=== PATIENT | male | born 1960 | race Hispanic/Latino ===

== ENCOUNTER 2021-02-22 16:32 | Inpatient (IN) | payer OTHER ==
[~2021-02-22] VITALS: Ht 172.7 cm; Wt 127.0 kg
[2021-02-22] MEDS ORDERED: PIPERACILLIN/TAZO 4.5 GM 100 ML IV STA (16:41)
[2021-02-22] MEDS ORDERED: HYDROMORPHONE 1MG/1ML INJ IV PRN (16:45)
[2021-02-22 18:08] LABS: BASOPHILS # (AUTO) 0.1 (0.0-0.1); BASOPHILS % 0.8 % (0.0-1.0); EOSINOPHILS # (AUTO) 0.1 (0.0-0.4); EOSINOPHILS % 0.9 % (0.0-6.0); HEMATOCRIT 47.8 % (38.2-49.6); HEMOGLOBIN 15.9 g/dL (14.0-18.0); LYMPHOCYTES # (AUTO) 1.3 (1.0-3.2); LYMPHOCYTES % 19.7 % (18.0-39.1); MEAN CORPUSCULAR HEMOGLOBIN 24.7 pg (28-32); MEAN CORPUSCULAR HGB CONC 33.3 g/dL (31-35); MEAN CORPUSCULAR VOLUME 74.1 fL (81-99); MONOCYTES # (AUTO) 0.7 (0.2-0.8); MONOCYTES % 10.4 % (4.4-11.3); NEUTROPHILS # (AUTO) 4.1 (2.1-6.9); NEUTROPHILS % 62.9 % (38.7-80.0); PLATELET COUNT 195 x10e3/uL (140-360); RED BLOOD COUNT 6.45 x10e6/uL (4.3-5.7); RED CELL DISTRIBUTION WIDTH 21.1 % (11.7-14.4)
[2021-02-22 18:20] LABS: ALANINE AMINOTRANSFERASE 31 IU/L (0-55); ALBUMIN 3.7 g/dL (3.5-5.0); ALBUMIN/GLOBULIN RATIO 0.8 (0.8-2.0); ALKALINE PHOSPHATASE 109 IU/L (40-150); ANION GAP 16.6 mmol/L (8-16); BLOOD UREA NITROGEN 6 mg/dL (7-26); BUN/CREATININE RATIO 7 (6-25); CARBON DIOXIDE 22 mmol/L (22-29); CHLORIDE 100 mmol/L (98-107); CREATININE, SERUM 0.86 mg/dL (0.72-1.25); EST GLOMERULAR FILTRATION RATE > 60 ML/MIN (60-); GLUCOSE 122 mg/dL (74-118); POTASSIUM 4.6 mmol/L (3.5-5.1); SODIUM 134 mmol/L (136-145)
[2021-02-22 21:56] VITALS: BP 157/141
[2021-02-22] MEDS: SODIUM CHLORIDE 0.9% 1000ML 1,000 ML IV SCH (21:59)
[2021-02-22] MEDS: CLINDAMYCIN 300MG 50 ML IV SCH ×2 (21:59→22:05)
[2021-02-22] MEDS ORDERED: PIPERACILLIN/TAZO 4.5 GM 100 ML IV ONE (22:01)
[2021-02-22] MEDS ORDERED: SODIUM CHLORIDE 0.9% 100 ML ONE (22:01)
[2021-02-23 00:30] VITALS: BP 162/92
[2021-02-23] MEDS ORDERED: LYRICA150 MG PO (03:29)
[2021-02-23 04:30] VITALS: BP 160/86
[2021-02-23 05:21] LABS: BASOPHILS # (AUTO) 0.1 (0.0-0.1); EOSINOPHILS # (AUTO) 0.1 (0.0-0.4); EOSINOPHILS % 0.8 % (0.0-6.0); HEMATOCRIT 47.3 % (38.2-49.6); HEMOGLOBIN 15.5 g/dL (14.0-18.0); LYMPHOCYTES # (AUTO) 1.1 (1.0-3.2); LYMPHOCYTES % 17.9 % (18.0-39.1); MEAN CORPUSCULAR HEMOGLOBIN 24.3 pg (28-32); MEAN CORPUSCULAR HGB CONC 32.8 g/dL (31-35); MONOCYTES # (AUTO) 0.7 (0.2-0.8); MONOCYTES % 11.7 % (4.4-11.3); NEUTROPHILS % 64.3 % (38.7-80.0); PLATELET COUNT 166 x10e3/uL (140-360); RED BLOOD COUNT 6.39 x10e6/uL (4.3-5.7)
[2021-02-23] MEDS: SODIUM CHLORIDE 0.9% 1000ML 1,000 ML IV SCH ×3 (05:25→16:45)
[2021-02-23] MEDS: CLINDAMYCIN 300MG 50 ML IV SCH ×3 (05:25→22:58)
[2021-02-23 05:45] LABS: ANION GAP 14.5 mmol/L (8-16); BLOOD UREA NITROGEN 7 mg/dL (7-26); BUN/CREATININE RATIO 9 (6-25); CARBON DIOXIDE 21 mmol/L (22-29); CHLORIDE 105 mmol/L (98-107); CREATININE, SERUM 0.76 mg/dL (0.72-1.25); EST GLOMERULAR FILTRATION RATE > 60 ML/MIN (60-); GLUCOSE 102 mg/dL (74-118); POTASSIUM 4.5 mmol/L (3.5-5.1); SODIUM 136 mmol/L (136-145)
[2021-02-23] MEDS ORDERED: HYDROGEN PEROXIDE 120 ML BTL ONE (12:21)
[2021-02-23] MEDS ORDERED: FENTANYL CITRATE/PF 100MCG/2 ML INJ ONE (12:40)
[2021-02-23] MEDS ORDERED: MIDAZOLAM HCL 2 MG/2 ML VIAL ONE (12:40)
[2021-02-23] MEDS ORDERED: PROPOFOL IV EMULSION 10 MG/ML 20 ML VIAL ONE (13:35)
[2021-02-23] MEDS ORDERED: KETOROLAC TROMETHAMINE 30 MG/ML VIAL ONE (13:35)
[2021-02-23] MEDS ORDERED: POVIDONE IODINE 0.05% 0.05 % ML PO ONE (13:35)
[2021-02-23] MEDS ORDERED: ONDANSETRON HCL INJ 2MG/ML 2ML 2 MG/ML VIAL ONE (13:35)
[2021-02-23] MEDS ORDERED: LIDOCAINE HCL 2% LOCAL INJ 5 ML SDV VIAL INJ ONE (13:35)
[2021-02-23] MEDS ORDERED: DEXAMETHASONE SOD PHOS INJ 4 MG/ML VIAL ONE (13:35)
[2021-02-23] MEDS ORDERED: SEVOFLURANE INHAL SOLN 250 ML PEN BTL ONE (13:35)
[2021-02-23] MEDS ORDERED: HYDROCODONE/APAP 7.5MG-325MG 1 EA TAB PO PRN (14:00)
[2021-02-23] MEDS ORDERED: HYDROMORPHONE 1MG/1ML INJ IV PRN (14:00)
[2021-02-23] MEDS ORDERED: ONDANSETRON HCL INJ 2MG/ML 2ML 2 MG/ML VIAL IV PRN (14:00)
[2021-02-23 16:47] VITALS: BP 163/91
[2021-02-23] MEDS ORDERED: SODIUM CHLORIDE 0.9% 1000ML 1,000 ML ONE (16:54)
[2021-02-23 17:08] VITALS: BP 163/91
[2021-02-23] MEDS ORDERED: SIMVASTATIN20 MG PO (18:52)
[2021-02-23] MEDS ORDERED: VASOTEC10 M1 PO (18:52)
[2021-02-23] MEDS ORDERED: ALENDRONATE SOD70 MG PO (18:52)
[2021-02-23] MEDS ORDERED: BENZONATATE100 MG PO (18:52)
[2021-02-23] MEDS ORDERED: PEPCID20 MG PO (18:52)
[2021-02-23] MEDS ORDERED: DICYCLOMINE HCL20 MG PO (18:52)
[2021-02-23] MEDS ORDERED: METFORMIN HCL500 MG PO (18:52)
[2021-02-23] MEDS ORDERED: BUPROPION XL150 MG PO (18:52)
[2021-02-23] MEDS ORDERED: INDOCIN50 MG PO (18:52)
[2021-02-23] MEDS ORDERED: BENZONATATE 100 MG CAP PO PRN (19:15)
[2021-02-23 20:00] VITALS: BP 165/89
[2021-02-23 20:22] VITALS: BP 165/89
[2021-02-23] MEDS: DICYCLOMINE HCL 20 MG TAB PO SCH (20:57)
[2021-02-23] MEDS: PREGABALIN 75 MG CAP PO SCH (20:57)
[2021-02-23] MEDS: SIMVASTATIN 20 MG TAB PO SCH (20:58)
[2021-02-23] MEDS ORDERED: ENALAPRIL MALEATE 10 MG TAB PO ONE (21:00)
[2021-02-24] VITALS (8 sets, daily range): BP systolic 122–149; BP diastolic 73–84
[2021-02-24] MEDS: SODIUM CHLORIDE 0.9% 1000ML 1,000 ML IV SCH ×3 (00:45→17:09)
[2021-02-24] MEDS: CLINDAMYCIN 300MG 50 ML IV SCH ×3 (06:00→21:58)
[2021-02-24 06:11] LABS: ANION GAP 15.3 mmol/L (8-16); BLOOD UREA NITROGEN 9 mg/dL (7-26); BUN/CREATININE RATIO 12 (6-25); CALCIUM 8.6 mg/dL (8.4-10.2); CARBON DIOXIDE 20 mmol/L (22-29); CHLORIDE 104 mmol/L (98-107); CREATININE, SERUM 0.73 mg/dL (0.72-1.25); EST GLOMERULAR FILTRATION RATE > 60 ML/MIN (60-); GLUCOSE 93 mg/dL (74-118); POTASSIUM 4.3 mmol/L (3.5-5.1); SODIUM 135 mmol/L (136-145)
[2021-02-24] MEDS: DICYCLOMINE HCL 20 MG TAB PO SCH ×3 (09:00→20:47)
[2021-02-24] MEDS: FAMOTIDINE 20 MG TAB PO SCH ×2 (09:07→17:09)
[2021-02-24] MEDS: METFORMIN HCL 500 MG TAB PO SCH ×2 (09:07→17:09)
[2021-02-24] MEDS: PREGABALIN 75 MG CAP PO SCH ×2 (09:07→17:09)
[2021-02-24] MEDS: ENALAPRIL MALEATE 10 MG TAB PO SCH ×2 (09:08→17:10)
[2021-02-24] MEDS: BUPROPION HCL 150 MG TABCR PO SCH (09:08)
[2021-02-24] MEDS ORDERED: ONDANSETRON HCL 4 MG ORAL DISINTEGRATING TAB PO PRN (16:15)
[2021-02-24] MEDS: SIMVASTATIN 20 MG TAB PO SCH (20:47)
[2021-02-25] VITALS: BP 107/78
[2021-02-25] MEDS: SODIUM CHLORIDE 0.9% 1000ML 1,000 ML IV SCH (00:45)
[2021-02-25 04:00] VITALS: BP 113/68
[2021-02-25] MEDS: CLINDAMYCIN 300MG 50 ML IV SCH (05:43)
[2021-02-25 07:49] VITALS: BP 125/76
[2021-02-25 07:50] VITALS: BP 125/76
[2021-02-25] MEDS: METFORMIN HCL 500 MG TAB PO SCH (08:00)
[2021-02-25] MEDS: FAMOTIDINE 20 MG TAB PO SCH (08:05)
[2021-02-25] MEDS ORDERED: SODIUM HYPOCHLORITE 0.5% 480 ML BTL IR ONE (09:30)
[2021-02-25] MEDS: PREGABALIN 75 MG CAP PO SCH (09:42)
[2021-02-25] MEDS: ENALAPRIL MALEATE 10 MG TAB PO SCH (09:42)
[2021-02-25] MEDS: BUPROPION HCL 150 MG TABCR PO SCH (09:42)
[2021-02-25] MEDS: DICYCLOMINE HCL 20 MG TAB PO SCH (09:42)
[2021-02-25 12:21] VITALS: BP 120/74
[2021-02-28] MEDS ORDERED: ALENDRONATE SODIUM 70 MG TAB PO SCH (07:00)
== END 2021-02-25 13:43 | disposition home or self-care (01) | DRG 857 ==
LOC: ER 16:41 → UNDOADMIN 16:46 → ERHOLD 16:46 → PACU V 16:46 → ERHOLD 19:33 → OR 02-23 11:27 → PACU V 02-23 13:51 → UNDOADMIN 02-23 13:51 → MED/SURG3 02-23 16:33 → PACU V 02-23 16:33 → UNDODISIN 02-25 13:43
PROVIDERS: ADMIT Surgery; ATTEND Surgery
PROC: 0JBM0ZZ Excision of Left Upper Leg Subcutaneous Tissue and Fascia, Open Approach (ICD-10-PCS; principal; 2021-02-23 12:30)
DX: T81.49XA Infection following a procedure, other surgical site, initial encounter (principal); I96 Gangrene, not elsewhere classified; Z68.41 Body mass index [BMI] 40.0-44.9, adult; L76.82 Other postprocedural complications of skin and subcutaneous tissue; D17.1 Benign lipomatous neoplasm of skin and subcutaneous tissue of trunk; E66.01 Morbid (severe) obesity due to excess calories; E11.9 Type 2 diabetes mellitus without complications; K74.60 Unspecified cirrhosis of liver
CPT/HCPCS: 36415; 80048; 80053; 82948; 83605; 85025; 87040; 87071; 87075; 87186; 87205; 93005; 99251; 99284; J1100; J1170; J1885; J2001; J2250; J2405; J2543; J3010; J7030; J7050; U0002